=== PATIENT | male | born 1960 | race Caucasian/White ===

== ENCOUNTER 2017-11-09 10:47 | Emergency (ER) | payer BC ==
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
[2017-11-09] MEDS ORDERED: Diphtheria,Pertussis(Acell),Tetanus Vaccine 0.5 ML Syringe IM ONE (12:29)
[2017-11-09 12:33] VITALS: BP 151/98
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
--- NOTE | 2017-11-10 15:37 | CR ---
EXAM DATE: 11/09/17 PATIENT'S AGE: 57 Patient: KEVAN WOLFE Facility: [place], [place] Site . Site : 1960 Study: XRay Chest [id number]/29/2018 11:51:02 AM Ordering Physician: Doctor Lopez Final Report: Pain in shoulders in back Findings: Normal cardiac mediastinal silhouette. No acute airspace or interstitial process. Slight widening of the right AC joint. AC degenerative change. No pneumothorax. No bony fractures seen. IMPRESSION: 1. No acute pulmonary process. 2. Slight widening of the right AC joint could reflect acromioclavicular injury. Dictated by Martine Stack MD @ Nov 09 2017 12:05PM (Electronic Signature) Report Signed by Proxy. SAUNDRA
--- NOTE | 2017-11-10 15:38 | CR ---
EXAM DATE: 11/09/17 PATIENT'S AGE: 57 Patient: KEVAN WOLFE Facility: [place], [place] Site . Site : 1960 Study: XRay Shoulder Right [id number]/29/2018 11:54:35 AM Ordering Physician: Doctor Lopez Final Report: Pain right shoulder 3 views of the right shoulder. FINDINGS: Widening of the AC joint. There is AC degenerative change. Normal articulation of the glenohumeral joint. No fractures are seen. Impression : Widening of the AC joint may reflect AC 2 separation. Dictated by Martine Stack MD @ Nov 09 2017 12:08PM (Electronic Signature) Report Signed by Proxy. SAUNDRA
--- NOTE | 2017-11-10 15:39 | CR ---
EXAM DATE: 11/09/17 PATIENT'S AGE: 57 Patient: KEVAN WOLFE Facility: [place], [place] Site . Site : 1960 Study: XRay Shoulder Left [id number]/29/2018 11:58:03 AM Ordering Physician: Doctor Lopez Final Report: Pain left shoulder 3 views of the left shoulder. FINDINGS: Normal articulation of the glenohumeral joint. No fractures or dislocations seen. AC joint appears within normal limits. IMPRESSION: 1. No acute fracture. Dictated by Martine Stack MD @ Nov 09 2017 12:16PM (Electronic Signature) Report Signed by Proxy. SAUNDRA
== END 2017-11-09 13:38 | disposition home or self-care (01) ==
LOC: MW.ED 10:47
DX: S43.101A Unspecified dislocation of right acromioclavicular joint, initial encounter (principal); Z79.899 Other long term (current) drug therapy; Z23 Encounter for immunization; W22.8XXA Striking against or struck by other objects, initial encounter
CPT/HCPCS: 70450; 70450-26; 71046; 71046-26; 72125; 72125-26; 73030-26-LT; 73030-26-RT; 73030-LT; 73030-RT; 90471; 90715; 99284-25